=== PATIENT | male | born 1960 | race Two or more races ===

== ENCOUNTER 2017-11-22 06:13 | Day surgery (SDC) | payer OTHER ==
[2017-11-21 12:09] VITALS: BMI 34.4
[2017-11-22 09:56] VITALS: TEMP 98
[2017-11-22 10:42] VITALS: BP 104/59; PULSE 80
== END 2017-11-22 10:30 | disposition home or self-care (01) ==
LOC: JASU-SURG 06:13
PROVIDERS: ATTEND Surgery
PROC: 0JB50ZZ Excision of Left Neck Subcutaneous Tissue and Fascia, Open Approach (ICD-10-PCS; principal; 2017-11-22)
PROC: 0JB40ZZ Excision of Right Neck Subcutaneous Tissue and Fascia, Open Approach (ICD-10-PCS; 2017-11-22)
DX: L72.0 Epidermal cyst (principal)
CPT/HCPCS: 87070; 87186; 87205; 88304-TC; 94760